=== PATIENT | male | born 1985 | race Caucasian/White ===

== ENCOUNTER 2016-09-12 22:41 | Emergency (ER) | payer BC ==
[~2016-09-12] VITALS: Ht 182.9 cm; Wt 69.4 kg
[2016-09-12 22:46] VITALS: Ht 182.9 cm; Wt 69.4 kg
[2016-09-12] MEDS ORDERED: PROCHLORPERAZINE 5 MG/ML 2 ML VIAL IV STA (23:53)
[2016-09-12] MEDS ORDERED: KETOROLAC TROMETHAMINE 30 MG/ML VIAL IV STA (23:53)
[2016-09-12] MEDS ORDERED: DiphenhydrAMINE HCL 50 MG/ML VIAL IV STA (23:53)
[2016-09-13] MEDS ORDERED: SODIUM CHLORIDE 0.9% 1000ML 1,000 ML IV ONE
[2016-09-13] MEDS ORDERED: DEXAMETHASONE SOD INJ 10 MG/ML VIAL IV ONE
[2016-09-13 00:26] LABS: BASO % 0.1 %; BASO ABS # 0.01 K/uL (0-0.2); COMPLETE YES; HEMATOCRIT 42.9 % (42-52); IG% 0.2 %; LYMPH % 8.4 %; LYMPH ABS # 1.07 K/uL (1.2-3.4); MEAN CELL VOLUME 87.9 fL (80-100); MEAN CORPUSCULAR HEMOGLOBIN 31.1 pg (25-34); MEAN CORPUSCULAR HGB CONC 35.4 g/dl (32-36); MEAN PLATELET VOLUME 10.9 fL (7.4-10.4); MONO % 4.7 %; NEUT % 86.6 %; PLATELET COUNT 214 K/uL (130-400); RED BLOOD COUNT 4.88 M/uL (4.7-6.1); WHITE BLOOD COUNT 12.67 K/uL (4.8-10.8)
[2016-09-13 00:44] LABS: BUN/CREATININE RATIO 20.2 (10-20); CALCIUM 9.1 mg/dl (8.5-10.1); CREATININE 0.78 mg/dl (0.60-1.40)
[2016-09-13 00:55] LABS: ALB/GLOB RATIO 1.7 (0.9-2); THYROID STIMULATING HORMONE 0.164 uIu/ml (0.300-4.500)
[2016-09-13 01:26] LABS: LYME DISEASE AB IGG NEG (NEG); LYME DISEASE AB IGM NEG (NEG)
[2016-09-13 02:20] VITALS: BP 147/86; PULSE 89; TEMP 36.4; O2SAT 97
--- NOTE | 2016-09-13 06:56 | DIAGNOSTIC IMAGING REPORT ---
CT OF THE HEAD WITHOUT CONTRAST CLINICAL HISTORY: Headache. COMPARISON STUDY: No previous studies for comparison. CT DOSE: 614.27 mGy.cm TECHNIQUE: Helical axial images of the head were obtained without IV contrast. Automated exposure control was utilized for the study. A dose lowering technique was utilized adhering to the principles of ALARA. FINDINGS: No acute intracranial hemorrhage, midline shift or mass effect is present. Ventricular system is normal. Basilar cisterns are patent. There are no extra-axial collections. Bowens-white differentiation is maintained. There are no findings to suggest acute dural sinus thrombosis or acute territorial infarct. There are no significant calvarial abnormalities. There is a possible mucous retention cyst within the left sphenoid sinus. Mastoid air cells are clear. Slight deformity of the right nasal bone is age indeterminate although probably chronic. IMPRESSION: No acute intracranial findings. Electronically signed by: Kahsif Castro M.D. 09/13/2016 6:55 AM Dictated Date/Time: 09/13/2016 6:52 AM
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
== END 2016-09-13 02:21 | disposition home or self-care (01) ==
LOC: C.EDB 22:43 → C.EDA 09-13 02:21
DX: G43.909 Migraine, unspecified, not intractable, without status migrainosus (principal); F17.200 Nicotine dependence, unspecified, uncomplicated